=== PATIENT | male | born 1935 | race Caucasian/White ===

== ENCOUNTER → 2016-05-23 | Outpatient (CLI) | payer MEDICARE, OTHER ==
[~2016-05-23] MED LIST: ALLO100T PO; ASPI81 PO; CALC0.25 PO; CARV3.125 PO; CLEAPOW6 PO; CO Q200C; CRAN250T PO; CYMB60CA PO; HYDR-3580 PO; LISI-357 PO; LIVA2TAB PO; MIRA50TA PO; NAME10TA PO; PRAS10TA PO; RANI150T PO; RITA20TA PO; RIVA9.5T TD; TAB-TAB PO; ZETI10TA5 PO; ZOLP10TA3 PO
[2016-05-23 11:29] LABS: POTASSIUM 5.5 MEQ/L (3.5-5.1)
[2016-05-23 11:32] LABS: BICARBONATE 19.2 MEQ/L (21.0-32.0)
[2016-05-23 13:14] LABS: HEMATOCRIT 32.2 % (39.0-51.0); MEAN CELL VOLUME 90.7 FL (80.0-100.0); MEAN CORPUSCULAR HEMOGLOBIN 30.8 PG (27.0-34.0); PLATELET COUNT 180 TH/MM3 (150-450); RED BLOOD COUNT 3.55 MIL/MM3 (4.50-5.90); RED CELL DISTRIBUTION WIDTH 14.6 % (11.6-17.2); REVIEW FLAG FINAL; WHITE BLOOD COUNT 9.2 TH/MM3 (4.0-11.0)
[2016-05-23 13:21] LABS: BLOOD, URINE NEG (NEG); GLUCOSE,URINE 70 mg/dL (NEG); KETONE, URINE NEG (NEG); NITRITE,URINE NEG (NEG); SQUAMOUS EPITHELIAL CELL URINE <1 /hpf (0-5); URINE COLOR LIGHT-YELLOW (YELLW/STRAW)
== END ==
LOC: PLAB 10:04
PROVIDERS: ATTEND Internal Medicine Nephrology
DX: N18.3 Chronic kidney disease, stage 3 (moderate) (principal)
CPT/HCPCS: 36415; 80069; 81001; 82570; 83970; 84156; 85027